=== PATIENT | female | born 1955 | race Caucasian/White ===

== ENCOUNTER 2022-08-13 16:20 | Outpatient (REF) | payer OTHER, SELFPAY ==
--- NOTE | 2022-08-13 15:55 | PAPFT_PTH ---
PATIENT: Zara Whitt LOC: [facility] U#:[id number] AGE/SX: 66/F ROOM: RE08/13/[address]: Michaela Garcia NP : 1955 BED: DIS: 08/13/2022 SPEC #: [id number] RECD: 08/13/22 17:59 STATUS: TANVI REShanell #: [id number] NIKIA: 08/13/22 15:[address]: Michaela Garcia NP DEPT: [facility] Cytology RECD BY: Maria Esther Conn Tissues: 1 - CX/ENDOCX FOR PAP SMEARS Procedures: PAP THIN PREP/[facility] Screening HPV DNA PROBE Comments: [id number]
== END 2022-08-13 16:21 | disposition home or self-care (01) ==
LOC: LBN 16:20
PROVIDERS: Visit Provider Nurse Practitioner Women's Health
DX: Z12.4 Encounter for screening for malignant neoplasm of cervix (principal); Z11.51 Encounter for screening for human papillomavirus (HPV)
CPT/HCPCS: 88142; 87624